=== PATIENT | female | born 1950 | race Caucasian/White ===

== ENCOUNTER → 2024-11-23 | Outpatient (CLI) | payer MEDICARE, OTHER, SELFPAY ==
[2024-11-23 15:46] LABS: Basophils # (Auto) 0.1 Thou/mm3 (0.0-0.2); Basophils % (Auto) 1 % (0-2.5); Eosinophils # (Auto) 0.1 Thou/mm3 (0.0-0.5); Eosinophils % (Auto) 3 % (0-10); Hematocrit 39.7 % (36.0-46.0); Hemoglobin 13.1 g/dL (12.0-16.0); Immature Granulocytes % (Auto) 0 % (0-0); Immature Granulocytes Auto 0.01 Thou/mm3 (0.00-0.00); Lymphocytes # (Auto) 2.1 Thou/mm3 (1.0-4.8); Lymphocytes % (Auto) 42 % (10-50); Mean Corpuscular Hemoglobin 30.1 pg (25.0-35.0); Mean Corpuscular Volume 91 fL (80-100); Monocytes # (Auto) 0.3 Thou/mm3 (0.0-0.8); Monocytes % (Auto) 7 % (0-12); Neutrophils # (Auto) 2.3 Thou/mm3 (1.8-7.7); Neutrophils % (Auto) 47 % (37-80); Nucleated Red Blood Cell % 0 /100 WBC (0); Platelet Count 171 Thou/mm3 (140-440); RDW Standard Deviation 42.8 fL (36.4-46.3); Red Blood Count 4.35 Miln/mm3 (4.00-5.20); White Blood Count 4.9 Thou/mm3 (3.6-11.0)
[2024-11-23 15:56] LABS: Glucose Estimated Average 103 mg/dL (80-131); Hemoglobin A1C 5.2 % Hgb (4.8-6.0)
[2024-11-23 16:04] LABS: Alanine Aminotransferase 18 U/L (10-49); Albumin/Globulin Ratio 1.9 (1.2-2.2); Alkaline Phosphatase 85 U/L (46-116); Anion Gap 5 (7-16); Aspartate Amino Transferase 19 U/L (0-34); BUN/Creatinine Ratio 23 Ratio (12-20); Bilirubin,Total 0.4 mg/dL (0.3-1.2); Blood Urea Nitrogen 18 mg/dL (9-23); Calcium 9.8 mg/dL (8.3-10.6); Calcium (Corrected) 9.8 mg/dL (8.5-10.1); Carbon Dioxide 30.1 mMol/L (20.0-31.0); Cardiac Risk Estimate 3.5 RATIO (3.7-5.6); Chloride 108 mMol/L (98-107); Cholesterol 179 mg/dL (132-200); Creatinine (Component) 0.8 mg/dL (0.6-1.3); Globulin 2.1 gm/dL (2.3-3.5); Glucose 96 mg/dL (74-106); HDL Cholesterol 51 mg/dL (40-60); LDL Cholesterol,Calculated 107 mg/dL (0-130); Osmolality,Calculated 286 (275-295); Sodium 143 mMol/L (136-145); Thyroid Stimulating Hormone 1.44 uIU/mL (0.55-4.78); Total Protein 6.1 gm/dL (5.7-8.2); Triglycerides 104 mg/dL (30-150); eGFR > 60 See Note
== END | disposition home or self-care (01) ==
LOC: COPL 14:18
PROVIDERS: PCP Internal Medicine; Referring Provider Internal Medicine; Visit Provider Internal Medicine
DX: M79.604 Pain in right leg (principal); E78.5 Hyperlipidemia, unspecified; I87.2 Venous insufficiency (chronic) (peripheral); R00.2 Palpitations
CPT/HCPCS: 36415; 80053; 80061; 83036; 84443; 85025

== ENCOUNTER 2025-02-08 14:37 | Outpatient (RCR) | payer MEDICARE, OTHER, SELFPAY ==
--- NOTE | 2025-02-08 16:19 | CTCCONSULT_ITS ---
[facility] [address] [place], [place] [address] Consultation Note Date: 02/08/2025 MR#: [id number] Name: JOSE ALFREDO CA : 1950 Dx: C34.11 Skin CA nose Referring physician. Mamadou jhaveri/Ke Watts PA-C Reason for consultation. Basal CA dorsum nose. History of Present Illness: Patient is a 74-year-old lady who has had various skin lesions treated with cryotherapy in the past both premalignant and basal cell CA. Patient was recently seen on December 18, 2024 for suspicious area in the dorsum of the nose. Punch biopsy performed 12/28/2024 revealed basal cell CA superficial pattern. Patient was given various options of treatment and elected to have radiation therapy using electron beam. Past Medical History: Various skin lesions including prior basal cell CA. Meds. Alendronate Allergies. None to meds Social History: Patient retired is a social drinker non-smoker. Review of Systems: Physical Exam: General: Well appearing lady no acute distress HEENT: There is a visible 3 x 5 mm lesion in the central dorsum area. No neck nodes felt. Assessment: T1 site basal cell CA dorsum nose. Patient agrees to have external beam radiation therapy. 3000 to 4500 cGy will be delivered to the dorsum of the nose. Adequate bolus and low energy electrons will be selected. Shielding of the eyes will be made. Side effects explained. Thank you very much for allowing me to evaluate this patient. Cc: Mamadou jhaveri. Electronically signed by: Nestor Bernstein MD, DABR 02/08/2025 4:16 PM
--- NOTE | 2025-02-08 16:21 | CTCTXPLN_ITS ---
[facility] [address] [place], [place] [address] Physician Clinical Treatment Planning Note Date of Service: 02/08/2025 Name: JOSE ALFREDO Fry.: 1950 The patient has agreed to proceed with Radiation therapy. Tests and supporting medical records were interpreted to assist in defining the tumor location and extent of disease. Further imaging will be necessary to contour and delineate the volume to which the XRT will be provided. A. Treatment Intent: Curative B. Modality:6 MeV C. Requested Technique: Electron beam D. Treatment Site: Dorsum nose E. Critical structures to be contoured on plan: F. In order to accomplish this plan, I am ordering/Prescribing the followin. Simulations (s) will be performed to accomplish a reproducible treatment position, to determine optimal treatment portals/beam arrangements, to design beam modifying devices and verify treatment portals on patient prior to the commencement of Radiation Therapy. Clinical set up 2. Devices; for immobilization and beam shapin. CT Guidance for placement of XRT louis Scan area: 4. Portal images Frequency: 5. Invivo transit dose measurement once per week on all VMAT patients. 6. Special Physics Consult Requested for: 7. Other requests: G. Dose Objectives: Curative Electronically signed by: Nestor Bernstein M.D. 02/08/2025 4:18 PM
--- NOTE | 2025-02-08 16:22 | CTCTXPLNST_ITS ---
Radiation Oncology Treatment Planning Sheet Name: JOSE ALFREDO CA MR#: [id number] : 1950 Dx: C44.301 Unspecified malignant neoplasm of skin of nose Date of Service: 02/08/2025 Account #: ?? Pt Treatment Intent: curative palliative other: Stage: Procedure CPT # Ordered Spec. Procedure 45375 Kil[place] Complex (set-up) 45155 nose 1 [place] Simple 91626 IMRT Plan 05068 MLC Devices VMAT 48536 Kilgore 3 D 82926 TRTMT dev Complex 49264 Head rest/eye shelds/1 cm bolus 3 TRTMT dev simple 01665 Basic Olivier 60454 1 Special Dosimetry 08289 Spec Physics 20399 Port Films 33371 SRS Cranial/1FX 26195 SBR 5 FX or Less /ex: 5 = 5 fx 02225 IMRT Simple 63398 IMRT Complex 98108 IGRT 01737 Rad del com 6-10 34512 5100 17 Rad del com 11- 37495 Cont Med Physics 33832 3 Treatment Planning 36846 1 Rad del com 20 mev 75580 Rad del inter 610 76483 Rad del inter 08-30 42686 Rad del simple 6-10 04773 Rad del simple 1119 66257 Special Port Plan 37173 TRTMT dev inter 93311 Isodose Complex 05544 Isodose simple 40528 Resp Motion Mgmt Simulation 87414 Placement of Fiducial Markers 72993 Electronically Signed By: Nestor Bernstein MD, DABR 02/08/2025 4:20 PM
== END 2025-02-08 23:59 | disposition home or self-care (01) ==
LOC: SCTC 14:37
PROVIDERS: PCP Internal Medicine; Referring Provider Physician Assistant; Visit Provider Radiology Therapeutic Radiology
DX: C44.311 Basal cell carcinoma of skin of nose (principal)
CPT/HCPCS: 99213; G0463

== ENCOUNTER 2025-03-07 10:24 | Outpatient (RCR) | payer MEDICARE, OTHER, SELFPAY ==
--- NOTE | 2025-02-10 10:27 | CTCSNOTE_ITS ---
[facility] [address] [place], [place] [address] Complex Simulation Note Date: 02/09/2025 MR#: [id number] Name: JOSE ALFREDO CA : Dx: C44.301 Unspecified malignant neoplasm of skin of nose (A) Under direct visualization the tumor volume was localized and field was set up clinically. (C) Patient was treated with custom blocks. Electronically signed by: Nestor Bernstein MD, DABR 02/10/2025 10:25 AM
== END 2025-03-11 23:59 | disposition home or self-care (01) ==
LOC: SCTC 10:24
PROVIDERS: PCP Internal Medicine; Referring Provider Internal Medicine; Visit Provider Radiology Therapeutic Radiology
DX: Z51.0 Encounter for antineoplastic radiation therapy (principal); C44.311 Basal cell carcinoma of skin of nose
CPT/HCPCS: 77290; 77300; 77332; 77336; 77412

== ENCOUNTER 2025-03-28 10:50 | Outpatient (RCR) | payer MEDICARE, OTHER, SELFPAY ==
--- NOTE | 2025-03-28 11:18 | CTCTSUMM_ITS ---
[facility] [address] [place], [place] [address] Treatment Summary Date: 03/28/2025 MR#: [id number] Name: JOSE ALFREDO CA : 1950 Dx: C44.301 Referring Physician: Mamadou dermatology (A) Diagnosis: [ICD10] C44.301 Unspecified malignant neoplasm of skin of nose (B) Aim of Treatment: ?? (C) Concomitant Chemotherapy: (D) Radiation Dates: 02/14/2025 through 03/07/2025 Treatment Prescription nose ENFACE ELECTRONS 06 MeV E- 4,500 cGy 15 300 cGy Approved (E) All louis were treated using customized MLC Blocks (F) Finding at Discharge: Patient seen for first follow-up on 03/28/2025. Had moderate erythema but desquamation largely healed. (G) Discharge Instructions and F/U Appt was given: The patient was also advised to continue follow-up with primary care physician: and with us in 6 months. Electronically signed by: Nestor Bernstein MD, LAITH 03/28/2025 11:16 AM
== END 2025-04-10 23:59 | disposition home or self-care (01) ==
LOC: SCTC 10:50
PROVIDERS: PCP Internal Medicine; Referring Provider Internal Medicine; Visit Provider Radiology Therapeutic Radiology
DX: C44.311 Basal cell carcinoma of skin of nose (principal)
CPT/HCPCS: 99212; G0463

== ENCOUNTER 2025-09-27 10:24 | Outpatient (RCR) | payer MEDICARE, OTHER, SELFPAY ==
--- NOTE | 2025-09-27 11:12 | CTCFLWUP_ITS ---
[facility] [address] [place], [place] [address] FOLLOW-UP NOTE Date: 09/27/2025 MR#: [id number] Name: JOSE ALFREDO CA : Dx: C44.301 Unspecified malignant neoplasm of skin of nose Patient is here for follow-up after receiving radiation therapy 4500 cGy to the dorsum nose completed 03/07/2025 for basal cell CA. Area treated appears well-healed with no sign of recurrence. I will see her as needed in the future. Electronically signed by: Nestor Bernstein M.D. 09/27/2025 11:09 AM
== END 2025-10-11 23:59 | disposition home or self-care (01) ==
LOC: SCTC 10:24
PROVIDERS: PCP Internal Medicine; Referring Provider Internal Medicine; Visit Provider Radiology Therapeutic Radiology
DX: Z08 Encounter for follow-up examination after completed treatment for malignant neoplasm (principal); Z85.828 Personal history of other malignant neoplasm of skin; Z92.3 Personal history of irradiation
CPT/HCPCS: 99212; G0463